=== PATIENT | male | born 1955 | race Caucasian/White ===

== ENCOUNTER → 2024-03-23 07:00 | Outpatient (REF) | payer MEDICARE, BC, SELFPAY | LOC: DHCBC/DCA 07:00 | PROVIDERS: ATTENDING PHYSICIAN Internal Medicine Cardiovascular Disease; FAMILY PHYSICIAN Family Medicine | DX: I25.10 Atherosclerotic heart disease of native coronary artery without angina pectoris (principal); I25.2 Old myocardial infarction; E78.00 Pure hypercholesterolemia, unspecified | CPT/HCPCS: 78452; 93017; A9500; J2785 ==